=== PATIENT | male | born 1970 | race Two or more races ===

== ENCOUNTER 2023-12-25 09:58 | Emergency (ER) | payer MEDICAID, OTHER ==
[~2023-12-25] VITALS: Ht 172.7 cm; Wt 83.2 kg
[2023-12-25 10:11] VITALS: BP 160/88; RESP 20; O2SAT 99
[2023-12-25 10:55] LABS: Basophils # (auto) 0 10 ^3/uL (0-0.2); Basophils % (auto) 0.2 % (0.0-2.0); Eosinophils # (auto) 0 10 ^3/uL (0-0.8); Eosinophils % (auto) 0.1 % (0.0-7.0); Hematocrit 43.4 % (41.0-53.0); Hemoglobin 14.6 g/dL (13.5-17.5); Lymphocytes # (auto) 1.6 10 ^3/uL (0.4-5.4); Lymphocytes % (auto) 13.2 % (10.0-50.0); Mean Corpuscular Hemoglobin 28.9 pg (28.0-32.0); Mean Corpuscular Hgb Conc. 33.8 g/dL (32.0-36.0); Mean Corpuscular Volume 85.6 fL (80.0-100.0); Monocytes # (auto) 0.5 10 ^3/uL (0-1.3); Monocytes % (auto) 3.9 % (0.0-12.0); Neutrophils # (auto) 10.2 10 ^3/uL (1.6-8.6); Neutrophils % (auto) 82.6 % (37.0-80.0); Platelet Count (auto) 232 10^3/uL (140-450); Red Blood Cells 5.06 10^6/uL (4.5-5.90); Red Cell Distribution Width 13.2 % (11.8-14.3); White Blood Cell 12.3 10^3/uL (4.4-10.8)
[2023-12-25 11:14] LABS: Alanine Aminotransferase 41 U/L (7-40); Alkaline Phosphatase 63 U/L (46-116); Anion Gap 10 (5-15); Aspartate Aminotransferase 27 U/L (13-40); BUN/Creatinine Ratio 10.9 (10.0-20.0); Blood Urea Nitrogen 13 mg/dL (9-23); Carbon Dioxide 24 mmol/L (20-30); Chloride 108 mmol/L (98-107); Glucose 137 mg/dL (74-106); Lipase 30 U/L (12-53); Potassium 4.1 mmol/L (3.5-5.1); Sodium 142 mmol/L (136-145)
[2023-12-25 11:15] LABS: Bilirubin, Total 0.8 mg/dL (0.2-1.0); Total Protein 7.9 g/dL (5.7-8.2)
[2023-12-25 11:16] LABS: Lactic Acid w/Reflex 3.3 mmol/L (0.4-2.0)
[2023-12-25 11:45] VITALS: PULSE 69
[2023-12-25] MEDS ORDERED: SODIUM CHLORIDE 0.9% 1,000 ML IV ONE (11:45)
[2023-12-26] MEDS ORDERED: TAMS-35 PO (09:17)
[2023-12-26] MEDS ORDERED: IBU600T PO (09:17)
== END 2023-12-25 11:58 | disposition left against medical advice (07) ==
LOC: ER 09:58
DX: R10.9 Unspecified abdominal pain (principal); Z53.21 Procedure and treatment not carried out due to patient leaving prior to being seen by health care provider; Z79.899 Other long term (current) drug therapy
CPT/HCPCS: 36415; 74176; 80053; 82962; 83605; 83690; 83880; 84484; 85025; 93005

== ENCOUNTER 2023-12-25 11:34 | Inpatient (IN) | payer MEDICAID, OTHER ==
[~2023-12-25] VITALS: Ht 167.6 cm; Wt 70.4 kg
[2023-12-25 13:50] LABS: Urine Bacteria None Seen /hpf (None Seen)
[2023-12-25 14:03] VITALS: BP 137/74; PULSE 84; RESP 20; TEMP 97.2; O2SAT 99
[2023-12-25 14:06] LABS: Urine Blood 1+ /uL (Negative); Urine Clarity Clear (Clear); Urine Color Light-Yellow (Yellow); Urine Mucus FEW (None Seen); Urine Protein, UAD TRACE (Negative); Urine Urobilinogen Normal (Negative); Urine WBC 1 /hpf (0 - 3); Urine pH 8.5 (5.0-9.0)
[2023-12-25] MEDS: TAMSULOSIN HYDROCHLORIDE 0.4 MG CAP PO ONE (14:23)
[2023-12-25] MEDS: KETOROLAC TROMETH 30 MG/ML 1ML VIAL IV ONE (14:29)
[2023-12-25] MEDS: SODIUM CHLORIDE 0.9% 1,000 ML IV ONE (14:29)
[2023-12-25] MEDS ORDERED: HYDROcodone-ACET 5/325MG TAB PO PRN (17:45)
[2023-12-25] MEDS ORDERED: MORPHINE SULFATE INJ 2 MG/ml SYRG IV PRN ×2 (17:45→19:00)
[2023-12-25] MEDS ORDERED: ACETAMINOPHEN 325 MG TAB PO PRN (17:45)
[2023-12-25] MEDS ORDERED: DOCUSATE SOD 100 MG CAP PO PRN (17:45)
[2023-12-25] MEDS ORDERED: ONDANSETRON HCL 4 MG/2 ML VIAL IV PRN (17:45)
[2023-12-25] MEDS ORDERED: NITROGLYCERIN 0.4 MG SL TAB SL PRN (19:00)
[2023-12-25 19:34] LABS: Alanine Aminotransferase 36 U/L (7-40); Albumin 4.7 g/dL (3.2-4.8); Alkaline Phosphatase 58 U/L (46-116); Anion Gap 9 (5-15); Aspartate Aminotransferase 23 U/L (13-40); BUN/Creatinine Ratio 15.8 (10.0-20.0); Bilirubin, Total 0.9 mg/dL (0.2-1.0); Blood Urea Nitrogen 16 mg/dL (9-23); Calcium 9.5 mg/dL (8.7-10.4); Carbon Dioxide 25 mmol/L (20-30); Chloride 108 mmol/L (98-107); Glucose 109 mg/dL (74-106); Potassium 3.6 mmol/L (3.5-5.1); Sodium 142 mmol/L (136-145); Total Protein 7.6 g/dL (5.7-8.2)
[2023-12-25] MEDS: SODIUM CHLORIDE 0.9% 1,000 ML IV SCH (20:24)
[2023-12-25 21:12] LABS: Basophils # (auto) 0 10 ^3/uL (0-0.2); Basophils % (auto) 0.3 % (0.0-2.0); Eosinophils # (auto) 0 10 ^3/uL (0-0.8); Eosinophils % (auto) 0.2 % (0.0-7.0); Hematocrit 38.6 % (41.0-53.0); Hemoglobin 13.4 g/dL (13.5-17.5); Lymphocytes # (auto) 2.4 10 ^3/uL (0.4-5.4); Lymphocytes % (auto) 26.2 % (10.0-50.0); Mean Corpuscular Hemoglobin 29.5 pg (28.0-32.0); Mean Corpuscular Hgb Conc. 34.7 g/dL (32.0-36.0); Monocytes # (auto) 0.7 10 ^3/uL (0-1.3); Neutrophils # (auto) 6.2 10 ^3/uL (1.6-8.6); Neutrophils % (auto) 66.3 % (37.0-80.0); Nucleated Red Blood Cells % 0.1 %; Platelet Count (auto) 209 10^3/uL (140-450); Red Blood Cells 4.54 10^6/uL (4.5-5.90); Red Cell Distribution Width 13.1 % (11.8-14.3); White Blood Cell 9.3 10^3/uL (4.4-10.8)
[2023-12-25] MEDS ORDERED: cefTRIAXone 1GM/50ML D5W 50 ML IV ONE (21:30)
[2023-12-26] MEDS ORDERED: TAMS-35 PO (09:17)
[2023-12-26] MEDS ORDERED: IBU600T PO (09:17)
[2023-12-26] MEDS ORDERED: cefTRIAXone 1GM/50ML D5W 50 ML IV SCH (21:00)
== END 2023-12-25 21:37 | disposition left against medical advice (07) | DRG 465 ==
LOC: EDBD 11:34 → ER 11:34 → OVERFLOW 18:55 → UNDOADMIN 18:55 → UNDODISIN 21:37 → OVERFLOW 21:38
PROVIDERS: ADMIT Nurse Practitioner Family; ATTEND Nurse Practitioner Family
DX: N13.2 Hydronephrosis with renal and ureteral calculous obstruction (principal); D72.829 Elevated white blood cell count, unspecified; Z53.29 Procedure and treatment not carried out because of patient's decision for other reasons; Z79.899 Other long term (current) drug therapy
CPT/HCPCS: 36415; 74176; 80053; 81001; 82962; 83605; 83690; 83880; 84484; 85025; 93005; G0378; J1885

== ENCOUNTER 2023-12-26 06:15 | Emergency (ER) | payer MEDICAID ==
[~2023-12-26] VITALS: Ht 172.7 cm; Wt 84.2 kg
[2023-12-26] MEDS ORDERED: HYDROmorphone HCL 2 MG/ML VL/or syr IV ONE (07:15)
[2023-12-26 07:40] VITALS: BP 158/80; PULSE 66; RESP 18; TEMP 98; O2SAT 98
[2023-12-26 08:12] LABS: Basophils # (auto) 0 10 ^3/uL (0-0.2); Basophils % (auto) 0.2 % (0.0-2.0); Eosinophils # (auto) 0 10 ^3/uL (0-0.8); Eosinophils % (auto) 0.1 % (0.0-7.0); Hematocrit 40.4 % (41.0-53.0); Lymphocytes # (auto) 1.8 10 ^3/uL (0.4-5.4); Lymphocytes % (auto) 14.5 % (10.0-50.0); Mean Corpuscular Hemoglobin 29.7 pg (28.0-32.0); Mean Corpuscular Hgb Conc. 34.7 g/dL (32.0-36.0); Mean Corpuscular Volume 85.6 fL (80.0-100.0); Monocytes # (auto) 0.8 10 ^3/uL (0-1.3); Monocytes % (auto) 6.2 % (0.0-12.0); Neutrophils # (auto) 9.8 10 ^3/uL (1.6-8.6); Platelet Count (auto) 200 10^3/uL (140-450); Red Blood Cells 4.72 10^6/uL (4.5-5.90); Red Cell Distribution Width 13.1 % (11.8-14.3); White Blood Cell 12.4 10^3/uL (4.4-10.8)
[2023-12-26] MEDS: KETOROLAC TROMETH 30 MG/ML 1ML VIAL IV ONE (08:12)
[2023-12-26 08:40] LABS: Alanine Aminotransferase 36 U/L (7-40); Albumin 4.7 g/dL (3.2-4.8); Alkaline Phosphatase 61 U/L (46-116); Anion Gap 9 (5-15); Aspartate Aminotransferase 25 U/L (13-40); BUN/Creatinine Ratio 11.4 (10.0-20.0); Bilirubin, Total 0.9 mg/dL (0.2-1.0); Blood Urea Nitrogen 13 mg/dL (9-23); Carbon Dioxide 23 mmol/L (20-30); Chloride 107 mmol/L (98-107); Glucose 107 mg/dL (74-106); Sodium 139 mmol/L (136-145); Total Protein 7.6 g/dL (5.7-8.2)
[2023-12-26 09:07] LABS: Lipase 34 U/L (12-53)
[2023-12-26] MEDS: TAMSULOSIN HYDROCHLORIDE 0.4 MG CAP PO ONE (09:09)
[2023-12-26] MEDS ORDERED: IBU600T PO (09:17)
[2023-12-26] MEDS ORDERED: TAMS-35 PO (09:17)
[2023-12-26 09:24] LABS: Urine Blood Negative /uL (Negative); Urine Clarity Turbid (Clear); Urine Color Yellow (Yellow); Urine Protein, UAD TRACE (Negative); Urine Specific Gravity 1.028 (1.001-1.035); Urine Urobilinogen 3 mg/dL (Negative); Urine pH 6.5 (5.0-9.0)
[2023-12-26] MEDS: POTASSIUM CHL 20 Meq TABLET PO ONE (09:29)
== END 2023-12-26 09:37 | disposition home or self-care (01) ==
LOC: ER 06:15
DX: N23 Unspecified renal colic (principal)
CPT/HCPCS: 36415; 74176; 80053; 81003; 83690; 85025; 96374; 99285; J1885